=== PATIENT | female | born 1970 | race Caucasian/White ===

== ENCOUNTER → 2017-06-28 | Outpatient (CLI) | payer OTHER ==
--- NOTE | 2017-06-28 16:09 | MAMMOGRAPHY REPORT ---
BILATERAL DIGITAL DIAGNOSTIC MAMMOGRAM TOMOSYNTHESIS WITH CAD AND TARGETED LEFT ULTRASOUND: 06/28/2017 CLINICAL HISTORY: The patient reports a two-month history of intermittent spontaneous left nipple dis charge. The discharge varies in color and has been green, white, yellow, and brownish but denies any frankly bloody nipple discharge. She denies any palpable lumps or other complaints. TECHNIQUE: Breast tomosynthesis in addition to standard 2D mammography was performed. Current study was also evaluated with a Computer Aided Detection (CAD) system. Bilateral CC and MLO 2-D and tomosy nthesis images and spot magnification left CC and ML views were obtained. COMPARISON: No prior exams were available for comparison. BREAST COMPOSITION: The tissue of both breasts is almost entirely fatty. FINDINGS: There is a lobulated 7 mm circumscribed mass within the left upper outer quadrant at appro ximately 2 to 3:00. A few punctate calcifications are seen within the mass, which do not clearly lay er on the lateral view to confirm milk of calcium. The remainder of both breasts demonstrate no susp icious masses, calcifications, or areas of architectural distortion. Targeted ultrasound was performed of the left subareolar breast. In the left subareolar breast, eith er immediately deep to the nipple or involving the nipple, there is a round hypoechoic 4 x 7 mm mass. While this could potentially represent ductal debris, an intraductal mass such as a papilloma is no t excluded. Recommend attempting ultra sound guided core needle biopsy for further evaluation. Targ eted ultrasound was performed of the left lateral breast in the region of the mammographic mass calci fications. No clear sonographic correlate is evident. IMPRESSION: ACR BI-RADS CATEGORY 4: SUSPICIOUS, TARGETED ULTRASOUND ACR BI-RADS CATEGORY 4: SUSPICIO US 1. Hypoechoic 7 mm mass in the left subareolar breast, either immediately deep to the nipple or pote ntially involving the nipple-areola complex. The differential includes intraductal debris versus an intraductal mass such as a papilloma. Recommend attempted ultrasound guided core needle biopsy for f urther evaluation. 2. Lobulated 7 mm mass with associated calcifications in the left upper outer quadrant, without a cl ear sonographic correlate evident. Given no priors to document stability, the mass is indeterminate and stereotactic biopsy is recommended for further evaluation. A phone call was made to the physician's office to confirm faxed results were received. The patient has been verbally notified of the results. She scheduled the biopsies before leaving the department. Approximately 10% of breast cancers are not detected with mammography. A negative mammographic report should not delay biopsy if a clinically suggestive mass is present. Kathy Mora M.D. ah/:06/28/2017 15:34:02 Costing Analyst: Donna ESCOBEDO)(Perry), [facility] letter sent: Abnormal 4/5 BI-RADS Code: ACR BI-RADS Category 4: Suspicious Ultrasound BI-RADS: ACR BI-RADS Category 4: Suspici ous
== END | disposition home or self-care (01) ==
LOC: C.MAMM 14:05
PROVIDERS: ATTEND Nurse Practitioner Family
DX: N63 Unspecified lump in breast (principal); N64.52 Nipple discharge

== ENCOUNTER → 2017-07-12 | Outpatient (CLI) | payer OTHER ==
--- NOTE | 2017-07-12 09:12 | Discharge Instructions ---
Discharge Instructions Procedure Procedure Date: Jul 12, 2017. Reason for visit: Left Calcs/Us Bx Left Mass. Discharge Discharge Date: Jul 12, 2017. Discharge Diagnosis: status post breast biopsies Instructions Activity Recommendations: Additional Limitations (see below) Return to School/Work: no limitations Recommended Home Diet: No Limitations Provider Instructions: ACTIVITY RECOMMENDATIONS: * No lifting, pushing, pulling or exercising the affected side for three days. RETURN TO SCHOOL/WORK: * You may return to work/school after the procedure, but do not perform any strenuous activities for 24 to 48 hours. MEDICATIONS: * Tylenol (two 325 mg) every four to six hours if needed for mild pain (if not allergic to Tylenol). DIET: * Resume previous diet. SPECIAL CARE INSTRUCTIONS: * Keep biopsy site dry for 24 hours. May shower after 24 hours, but do not soak (bathe) incision. * May remove Tegaderm (plastic patch) tomorrow AFTER showering. * Leave the steri-strips on for one week. Allow the steri-strips to fall off by themselves. If not off after one week, you may remove them. You may place a Bandaid crosswise over the strips, if desired. * Apply ice 10 minutes on and 10 minutes off as needed. * Wear a bra at bedtime to sleep more comfortably for 2-3 days. * Your referring physician should have the results after approximately 5 to 7 business days. * Call for unusual bleeding, fever, drainage, etc or if you have any questions call during normal business hours or after hours call Dr Mora, [phone]. FOLLOW UP VISIT: Follow-up with Referring Physician as scheduled. Behzad Moya Recommendations: Call your doctor if: * Temperature above 101 degrees * Pain not relieved by pain medicine ordered * There is increased drainage or redness from any incision * You have any unanswered questions or concerns. Your Doctors Instructions noted above were prepared by provider Kathy Mora. Patient Signature Section: Patient Instructions Signature Page Melina [place] Patient (or Guardian) Signature/Date: I have read and understand the instructions given to me by my caregivers. Caregiver/RN/Doctor Signature/Date: The above-named patient and/or guardian has received patient instructions on this date. + Original Patient Signature Page (only) stays with chart. Please make copy for patient.
--- NOTE | 2017-07-12 14:20 | MAMMOGRAPHY REPORT ---
ULTRASOUND GUIDED BIOPSY LEFT BREAST: 07/12/2017 CLINICAL HISTORY: Left subareolar breast mass. PATIENT CONSENT: The procedure, risks and benefits were discussed with the patient and informed writt en consent was obtained. A timeout was performed immediately prior to the procedure. PROCEDURE DESCRIPTION: With ultrasound guidance, aseptic technique, and lidocaine as the local anesth etic (1% lidocaine to anesthetize the skin and 1% lidocaine with epinephrine to anesthetize the deepe r tissues), the mass of concern in the immediate left subareolar breast was sampled 4 times with a 14 -gauge Achieve biopsy needle. Immediately thereafter, with ultrasound guidance, aseptic technique, a nd lidocaine as the local anesthetic, a metallic localizer clip was placed at the biopsy site. Direc t pressure was applied to the site immediately post procedure and hemostasis was achieved. Postproce dure unilateral mammograms were performed to confirm clip placement. The patient tolerated the proce dure without complication. She was given wound care instructions. [facility]. COMPARISON: Comparison is made to exams dated: 06/28/2017 ultrasound and 06/28/2017 mammogram - [facility]. IMPRESSION: ULTRASOUND GUIDED BIOPSY Ultrasound guided core needle biopsy of the left subareolar breast mass, with clip placement. The pa tiegail will receive pathology results from her referring provider. Kathy Mora M.D. /:07/12/2017 09:37:08 Ornamental Metal Fabricator Apprentice: Donna RICHARDS (R)(Perry), [facility]
--- NOTE | 2017-07-12 14:20 | MAMMOGRAPHY REPORT ---
THIS REPORT HAS BEEN AMENDED. STEREOTACTIC GUIDED BIOPSY LEFT BREAST: 07/12/2017 CLINICAL HISTORY: Left upper outer quadrant breast mass with associated calcifications. PATIENT CONSENT: The procedure, risks, benefits, and alternatives of stereotactic biopsy with clip pl acement were discussed with the patient, and verbal and written consent was obtained. A timeout was performed immediately prior to the procedure. PROCEDURE DESCRIPTION: With stereotactic guidance, aseptic technique, and lidocaine as a local anesth etic (1% lidocaine to anesthetize the skin and 1% lidocaine with epinephrine to anesthetize the deepe r tissues), the mass of concern with associated calcifications in the left upper outer quadrant was s ampled multiple times with a 9-gauge vacuum-assisted biopsy needle ([employer]). The path of approa ch was lateral. The specimen radiograph demonstrates calcifications to be present in the samples. A metallic marker clip was placed at the biopsy site. This was confirmed on postprocedure mammograms. Direct pressure was applied at the biopsy site and hemostasis was readily achieved. The patient to lerated the procedure without complication. She was given wound care instructions. COMPARISON: Comparison is made to exams dated: 06/28/2017 ultrasound and 06/28/2017 mammogram - [facility]. IMPRESSION: STEREOTACTIC GUIDED BIOPSY Stereotactic biopsy of mass with associated calcifications in the left upper outer quadrant, with cli p placement. The patient will receive pathology results from her referring provider. Kathy Mora M.D. ah/:07/12/2017 09:11:34 Kitchen Food Assembler: Donna RICHARDS(Natalya)(Perry), [facility] AMENDMENT: 07/18/2017 Kathy Mora M.D. Pathology from left breast biopsies was reviewed on 07/18/2017. The pathology of stereotactic biopsy of a left upper outer quadrant mass and associated calcifications yielded a benign ductal proliferati on with microcalcifications, with differential including adenosis or a small sclerosing intraductal p apilloma. Pathology of ultrasound guided biopsy of a left subareolar breast mass yielded granulation tissue with marked acute and chronic inflammation and foreign body giant cell reaction. Findings ar e benign and concordant with the imaging appearance. Recommend follow-up diagnostic tomosynthesis ma mmograms and possible ultrasound of the left breast in 6 months to confirm stability.
--- NOTE | 2017-07-12 14:20 | MAMMOGRAPHY REPORT ---
UNILATERAL LEFT DIGITAL DIAGNOSTIC MAMMOGRAM: 07/12/2017 CLINICAL HISTORY: Status post stereotactic biopsy and ultrasound-guided biopsies of the left breast. TECHNIQUE: Left CC, MLO, and LM views were obtained. COMPARISON: Comparison is made to exams dated: 07/12/2017 stereotactic biopsy, 06/28/2017 ultrasound, and 06/28/2017 mammogram - [facility]. BREAST COMPOSITION: The tissue of the left breast is almost entirely fatty. FINDINGS: A preprocedural left LM view was obtained for biopsy planning purposes. Postprocedural le ft ML and cc views were obtained, which shows a new dumbbell-shaped biopsy marker clip at the site of the biopsied mass with associated calcifications in the left lateral breast at approximately 3:00. A probable small postbiopsy hematoma measuring approximately 13 mm is seen on the ML view. A new rib bon-shaped biopsy marker clip is seen at the site of the biopsied mass in the left subareolar breast. IMPRESSION: POST PROCEDURE IMAGING FOR MARKER PLACEMENT New biopsy marker clip status post left breast biopsies. Pathology results are pending. Approximately 10% of breast cancers are not detected with mammography. A negative mammographic report should not delay biopsy if a clinically suggestive mass is present. Kathy Mora M.D. /:07/12/2017 09:52:28 Md Psychiatry: Donna ESCOBEDO)(Perry), [facility] BI-RADS Code: Post Procedure Imaging For Marker Placement
== END | disposition home or self-care (01) ==
LOC: C.MAMM 08:23
PROVIDERS: ATTEND Nurse Practitioner Family
DX: R92.1 Mammographic calcification found on diagnostic imaging of breast (principal); N63 Unspecified lump in breast

== ENCOUNTER → 2017-07-17 | Outpatient (CLI) | payer OTHER ==
--- NOTE | 2017-07-17 13:03 | MAMMOGRAPHY REPORT ---
ULTRASOUND OF LEFT BREAST: 07/17/2017 CLINICAL HISTORY: 46-year-old woman reports continued drainage from the incision in the 3:00 periareo lar region. No skin erythema, fevers or other complaints. COMPARISON: Comparison is made to exams dated: 07/12/2017 mammogram, 07/12/2017 ultrasound biopsy, 06/29 stereotactic biopsy, 06/28/2017 ultrasound, and 06/28/2017 mammogram - [facility]. FINDINGS: The patient returned to the breast care center with a complaint of continued drainage from the 3:00 incision. Steri-Strips and a Band-Aid were still in place over this incision and also an i ncision slightly superior and lateral in the left breast, from stereotactic guided biopsy. I was onl y able to elicit a minimal amount of each colored serosanguineous fluid from the incision, which is n early completely healed. Targeted ultrasound was performed over the area of incision and surrounding 5 mm ecchymosis. There is no evidence of a drainable fluid collection or obvious hematoma. A ribbo n-shaped biopsy marker clip is seen subdermal in location in the area of biopsy. IMPRESSION: There is minimal serosanguineous drainage elicited from the 3:00 incision after biopsy. No visible s igns of skin erythema or pus drainage from the incision to suggest infection. No drainable fluid col lection identified on ultrasound. I will not start antibiotics at this time and will continue to justyna ck in with the patient to see if the drainage stops. I also recommended discontinuing bacitracin oin tment to keep area dry. Marleen Sterling M.D. ay/:07/17/2017 12:37:46 Manager Of Medical: Soraida RICHARDS(R)(M), [facility] BI-RADS Code: n/a
--- NOTE | 2017-07-23 13:34 | MAMMOGRAPHY REPORT ---
ULTRASOUND OF LEFT BREAST: 07/20/2017 CLINICAL HISTORY: The patient presented with continued drainage from the incision in the left 3:00 pe riareolar region. She also reports new pain in this region. COMPARISON: Comparison is made to exams dated: 07/12/2017 mammogram, 07/12/2017 ultrasound biopsy, 06/29 stereotactic biopsy, 06/28/2017 ultrasound, and 06/28/2017 mammogram - [facility]. TECHNIQUE: Real-time targeted ultrasound of the left breast was performed. FINDINGS: The patient returned to the breast center with a complaint of continued drainage from the incision from biopsy of the left subareolar breast mass. The incision is nearly completely healed, w ith only a minimal amount of serosanguineous fluid seen from the incision. Targeted ultrasound was p erformed over the left subareolar breast, which again shows a hypoechoic mass in the subareolar breas t which may be slightly larger in size compared to the pre-biopsy images from the 06/28/2017 exam. Th e mass is irregular and somewhat ill-defined and therefore difficult to measure but measures at least 10 x 8 mm in the antiradial plane. Surrounding hyperemia is noted. The pathology results from core needle biopsy showed granulation tissue with marked acute and chronic inflammation and foreign body giant cell reaction, w hich can be seen with a ruptured cyst with inflammation or a small abscess. Given the pathology resu lts and given the drainage from the nipple and incision site as well as given the fact that the patie nt is a smoker, the left subareolar breast mass likely represents infection/abscess. A phone call was made to the patient's primary care provider's office Fabienne Bah, however, she was not in the office and therefore the findings were discussed with one of her nurses. After speaking w ith the nurse, it was decided to have the patient go to the clinic to be evaluated by a covering prov ider and likely be placed on antibiotics. IMPRESSION: The patient reports continued drainage from the incision from biopsy of the left subareolar breast ma ss, as well as new pain at the biopsy site. Given the pathology results and given the clinical findi ngs of pain as well as nipple discharge and discharge from the incision, the biopsied subareolar pearl st mass likely represents infection/abscess. The patient went immediately from the breast center to her primary care provider's office to be evaluated. This is a no charge exam. Kathy Mora M.D. ah/:07/20/2017 17:33:38 Manager Personnel Selection: Kiara ESCOBEDO)Kylah), [facility] BI-RADS Code: n/a
== END | disposition home or self-care (01) ==
LOC: C.MAMM 10:06
PROVIDERS: ATTEND Nurse Practitioner Family
DX: L76.82 Other postprocedural complications of skin and subcutaneous tissue (principal)

== ENCOUNTER → 2017-08-09 | Outpatient (CLI) | payer OTHER | END | disposition home or self-care (01) | LOC: C.LABSPEC 17:16 | PROVIDERS: ATTEND Surgery | DX: N61.1 Abscess of the breast and nipple (principal) ==

== ENCOUNTER → 2017-12-13 | Outpatient (CLI) | payer OTHER ==
--- NOTE | 2017-12-13 15:10 | MAMMOGRAPHY REPORT ---
UNILATERAL LEFT DIGITAL DIAGNOSTIC MAMMOGRAM TOMOSYNTHESIS WITH CAD AND TARGETED LEFT ULTRASOUND: 11/29 CLINICAL HISTORY: The patient had left nipple discharge and subsequently underwent a core needle biop sy of the left subareolar region June 2017, with pathology yielding granulation tissue with hudson ed acute and chronic inflammation and foreign body giant cell reaction, which can be seen with a rupt ured cyst with inflammation or a small abscess. Since the biopsy, she has had continued left nipple discharge and intermittent drainage from the left 3:00 periareolar incision made at the time of the c ore biopsy. Recently the nipple discharge has been foul-smelling and she has had increasing pain in the left 3:00 periareolar/subareolar breast. She also underwent stereotactic biopsy of a left breast mass with calcifications which yielded benign pathology. TECHNIQUE: Breast tomosynthesis in addition to standard 2D mammography was performed. Current study was also evaluated with a Computer Aided Detection (CAD) system. Left CC and MLO 2-D and tomosynthes is images and 2-D left X CCL and XCCM views were obtained. COMPARISON: Comparison is made to exams dated: 07/20/2017 ultrasound, 07/17/2017 ultrasound, 07/12/2017 mammogram, 07/12/2017 ultrasound biopsy, 07/12/2017 stereotactic biopsy, and 06/28/2017 ultrasound - [facility]. BREAST COMPOSITION: The tissue of the left breast is almost entirely fatty. FINDINGS: A triangle marker was placed at the site of the healed scar from the left breast stereotac tic biopsy in the left upper outer quadrant. There is minimal focal asymmetry in the left subareolar breast which appears similar to the prior exam. The biopsy marker clip from prior benign stereotact ic biopsy is seen within the left upper outer quadrant. The biopsy marker clip from core needle biop sy of the left subareolar mass is no longer evident; noted that the patient reports the clip came out of her incision along with drainage she was having after the biopsy. The remainder of the left pearl st is stable compared to prior exams, without suspicious masses, calcifications, or areas of architec tural distortion noted. Targeted ultrasound was performed of the area of pain pointed out by the patient, in between the heal ing incision in the left 3:00 periareolar breast and the subareolar breast. There is ill-defined hyp oechoic tissue seen within the immediate subareolar breast, which demonstrates increased vascularity on Doppler imaging. The area is ill-defined and therefore difficult to measure but measures at least 2.3 x 0.7 cm. This does not appear significantly changed compared to the June 2017 exam. This area was previously biopsied, with pathology showing granulation tissue with marked acute and chroni c inflammation and foreign body giant cell reaction. Given the pathology results and the clinical hi story, findings likely represent an inflammatory/infectious process (infectious process favored). No discrete focal fluid collection is seen. IMPRESSION: ACR BI-RADS CATEGORY 2: BENIGN, TARGETED ULTRASOUND ACR BI-RADS CATEGORY 2: BENIGN Persistent ill-defined hypoechoic tissue in the left subareolar breast, which likely represents an in fectious/inflammatory process given the prior pathology results and clinical history. There is no di screte focal fluid collection. There is no mammographic or targeted sonographic evidence of malignanc y. Recommend clinical follow-up for left breast complaints; the patient has a follow-up appointment with Dr. Esposito next week. Also recommend bilateral mammograms May 2018. The patient has been verbally notified of the results. Approximately 10% of breast cancers are not detected with mammography. A negative mammographic report should not delay biopsy if a clinically suggestive mass is present. Kathy Mora M.D. ah/:12/13/2017 10:38:09 Senior Software Architect: Jerri Esposito, [facility] letter sent: Normal 1/2 BI-RADS Code: ACR BI-RADS Category 2: Benign Ultrasound BI-RADS: ACR BI-RADS Category 2: Benign
== END | disposition home or self-care (01) ==
LOC: C.MAMM 09:49
PROVIDERS: ATTEND Surgery
DX: N63.20 Unspecified lump in the left breast, unspecified quadrant (principal); R92.8 Other abnormal and inconclusive findings on diagnostic imaging of breast